=== PATIENT | female | born 1935 | race Caucasian/White ===

== ENCOUNTER 2021-10-14 13:58 | Outpatient (CLI) | payer MEDICARE, OTHER | END 2021-10-14 13:59 | disposition home or self-care (01) | LOC: CSHULT 13:58 | PROVIDERS: ATTEND Family Medicine | DX: R09.89 Other specified symptoms and signs involving the circulatory and respiratory systems (principal) | CPT/HCPCS: 93880 ==

== ENCOUNTER 2021-10-14 14:57 | Outpatient (CLI) | payer MEDICARE | END 2021-10-14 14:58 | disposition home or self-care (01) | LOC: CSHMAMMO 14:57 | PROVIDERS: ATTEND Family Medicine | DX: Z12.31 Encounter for screening mammogram for malignant neoplasm of breast (principal); Z13.820 Encounter for screening for osteoporosis; E11.51 Type 2 diabetes mellitus with diabetic peripheral angiopathy without gangrene; Z80.3 Family history of malignant neoplasm of breast | CPT/HCPCS: 77063; 77067; 77080 ==